=== PATIENT | female | born 1965 | race Caucasian/White ===

== ENCOUNTER → 2017-01-23 | Outpatient (CLI) | payer OTHER | LOC: FIMAGING 14:46 | PROVIDERS: ATTEND Internal Medicine Hematology & Oncology | DX: Z13.820 Encounter for screening for osteoporosis (principal); Z85.3 Personal history of malignant neoplasm of breast ==

== ENCOUNTER 2018-02-15 17:45 | Observation (INO) | payer OTHER ==
[~2018-02-15 17:45] MED LIST: LIDOCAINE 4%/MENTHOL 1% PATCH TD ONE
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
--- NOTE | 2018-02-15 17:59 | CPEKG ---
Heart Rate: 65 RR Interval: 923 P-R Interval: 164 QRSD Interval: 96 QT Interval: 420 QTC Interval: 437 P [place]: 65 QRS [place]: 39 T Wave [place]: 39 EKG Severity - NORMAL ECG - EKG Impression: SINUS RHYTHM Electronically Signed By: Diann Merino 15-Feb-2018 21:38:01
[2018-02-15] MEDS ORDERED: IOPAMIDOL (ISOVUE-300) 100 ML BTL ONE (18:05)
[2018-02-15] MEDS ORDERED: LIDOCAINE 4%/MENTHOL 1% PATCH TD ONE (19:58)
[2018-02-15] MEDS ORDERED: HYDROmorphONE/DILAUDID 1 MG/ML INJ IVP PRN (20:02)
[2018-02-15] MEDS ORDERED: ONDANSETRON 4 MG/2 ML VIAL IVP PRN (20:02)
[2018-02-15] MEDS ORDERED: OXYCODONE/APAP 5/325 TAB PO PRN (20:02)
[2018-02-15] MEDS ORDERED: D5W 1/2 NS W/ 20 KCl/L 1,000 ML IV SCH (20:15)
[2018-02-15] MEDS ORDERED: ESCITALOPRAM OXALATE 10 MG TAB PO SCH (23:45)
[2018-02-15] MEDS ORDERED: ANASTROZOLE 1 MG TAB PO SCH (23:45)
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
[2018-02-16 05:09] LABS: PLATELET COUNT 222 10^3/uL (150-400)
[2018-02-16 07:44] VITALS: BP 114/71
[2018-02-16] MEDS ORDERED: PATCH REMOVAL 1 EA PATCH TD ONE (08:00)
--- NOTE | 2018-02-16 10:18 | TRAUMAPNT ---
Trauma Tertiary Progress Note Objective: Vital Signs Temp Pulse Resp BP Pulse Ox 36.7 C 64 14 114/71 94 02/16/18 07:43 02/16/18 07:43 02/16/18 07:43 02/16/18 07:43 02/16/18 07:43 Laboratory Results 02/16/18 04:51 02/15/18 02/16/18 02/17/18 05:59 05:59 05:59 Intake Total 600 Balance 600 tertiarry survey heent wnl lungs clear abds soft benign tender over mid sternum pelvis marylou ext/neuro wnl no new injuries found on tertiarry survey
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
== END 2018-02-16 12:18 | disposition home or self-care (01) ==
LOC: EDUNIT# → F3N 21:15
PROVIDERS: ADMIT Surgery; ATTEND Surgery
DX: S22.22XA Fracture of body of sternum, initial encounter for closed fracture (principal); V89.2XXA Person injured in unspecified motor-vehicle accident, traffic, initial encounter; Z85.3 Personal history of malignant neoplasm of breast; Z90.12 Acquired absence of left breast and nipple
CPT/HCPCS: 71046; 71260; 93005; G0378; 82435-PO; 82565-PO; 82947-PO; 84132-PO; 84295-PO; 84520-PO; 85014-PO; Q9967